=== PATIENT | male | born 1985 | race Caucasian/White ===

== ENCOUNTER 2022-11-28 16:22 | Emergency (ER) | payer MEDICAID ==
[2022-11-28 16:37] VITALS: BP 142/82; PULSE 71
[2022-11-28 17:36] LABS: PTT,PARTIAL THROMBOPLSTIN TIME 25.9 SEC (23.6-29.8)
[2022-11-28 17:46] LABS: ANION GAP 7.8 meq/L (7-15); CHLORIDE,CL 102 mmol/L (98-107); SODIUM,NA 140 mmol/L (136-145)
[2022-11-28 17:48] LABS: ACETAMINOPHEN < 10.0 ug/mL (10.0-30.0); ESTIMATED GFR 104 mL/min (>=60)
[2022-11-28 17:57] LABS: BARBITURATE SCREEN,URINE NEGATIVE (NEGATIVE); BENZODIAZEPINES SCREEN,URINE NEGATIVE (NEGATIVE); EDDP,URINE SCREEN NEGATIVE (NEGATIVE); TCA SCREEN,URINE NEGATIVE (NEGATIVE); THC SCREEN,URINE 50 NG/ML POSITIVE (NEGATIVE)
[2022-11-28 17:58] LABS: BUPRENORPHINE SCREEN,URINE NEGATIVE (NEGATIVE)
== END 2022-11-28 19:00 | disposition home or self-care (01) ==
LOC: LL.ED 16:22
DX: F32.A Depression, unspecified (principal); R41.3 Other amnesia; R45.851 Suicidal ideations; Z88.0 Allergy status to penicillin
CPT/HCPCS: 36415; 70450; 80053; 80143; 80179; 80305-QW; 80307; 81001; 82140; 83735; 84100; 84443; 85025; 85610; 85730; 86140; 99284; 99285

== ENCOUNTER 2022-12-04 12:20 | Emergency (ER) | payer MEDICAID ==
[2022-12-04] MEDS ORDERED: LORazepam 2 MG/ML SDV IM ONE (12:25)
[2022-12-04 13:02] LABS: BARBITURATE SCREEN,URINE NEGATIVE (NEGATIVE); BENZODIAZEPINES SCREEN,URINE NEGATIVE (NEGATIVE); EDDP,URINE SCREEN NEGATIVE (NEGATIVE); TCA SCREEN,URINE NEGATIVE (NEGATIVE); THC SCREEN,URINE 50 NG/ML POSITIVE (NEGATIVE)
[2022-12-04 13:05] LABS: ANION GAP 4.3 meq/L (7-15); CHLORIDE,CL 105 mmol/L (98-107); SODIUM,NA 140 mmol/L (136-145)
[2022-12-04 13:06] LABS: BUPRENORPHINE SCREEN,URINE NEGATIVE (NEGATIVE)
[2022-12-04 13:09] LABS: ESTIMATED GFR 111 mL/min (>=60)
[2022-12-04 13:10] LABS: ACETAMINOPHEN < 0.0 ug/mL (10.0-30.0)
== END 2022-12-04 16:30 ==
LOC: LL.ED 12:20
DX: R45.851 Suicidal ideations (principal); Z88.0 Allergy status to penicillin
CPT/HCPCS: 36415; 80053; 80143; 80179; 80305-QW; 80307; 81003; 83735; 85025; 86140; 96372; 99284; 99285; J2060

== ENCOUNTER 2023-10-06 18:55 | Emergency (ER) | payer SELFPAY ==
[2023-10-06 20:01] LABS: BASOPHILS ABSOLUTE AUTO 0.02 K/uL (0.00-0.20); BASOPHILS PERCENT AUTO 0.2 % (0.0-2.0); EOSINOPHILS ABSOLUTE AUTO 0.06 K/uL (0.00-0.50); EOSINOPHILS PERCENT AUTO 0.5 % (0.0-5.0); HEMATOCRIT 38.2 % (39.0-49.0); HEMOGLOBIN 12.6 g/dL (13.1-16.8); LYMPHOCYTES PERCENT AUTO 15.6 % (10.0-50.0); MEAN CORPUSCULAR HEMOGLOBIN 29.2 pg (28.2-33.3); MEAN CORPUSCULAR VOLUME 88.4 fL (84.0-98.0); MONOCYTES ABSOLUTE AUTO 0.72 K/uL (0.00-1.00); MONOCYTES PERCENT AUTO 6.6 % (2.0-14.0); NEUTROPHILS ABSOLUTE AUTO 8.43 K/uL (1.40-7.00); NEUTROPHILS PERCENT AUTO 77.1 % (45.0-80.0); PLATELET COUNT,PLT 376 K/uL (150-350); RED BLOOD CELL COUNT 4.32 M/uL (4.33-5.41); RED CELL DISTRIBUTION WIDTH 13.3 % (11.2-14.1); WHITE BLOOD CELL COUNT,WBC 10.9 K/uL (4.0-10.2)
[2023-10-06 20:14] LABS: CORONAVIRUS COVID-19 NAA NEGATIVE (NEGATIVE); INFLUENZA A NAA NEGATIVE (NEGATIVE); INFLUENZA B NAA NEGATIVE (NEGATIVE); RESPIRATORY SYNCYTIAL VIR NAA NEGATIVE (NEGATIVE)
[2023-10-06 20:15] LABS: INR 1.1 (0.9-1.1); PROTHROMBIN TIME 10.7 SEC (9.0-11.1)
[2023-10-06 20:21] LABS: ALBUMIN 3.5 g/dL (3.4-5.0); ANION GAP 7.4 meq/L (7-15); BILIRUBIN TOTAL 0.5 mg/dL (0.2-1.0); CALCIUM 8.9 mg/dL (8.5-10.1); CARBON DIOXIDE,CO2 30.6 mmol/L (21.0-32.0); CREATININE 0.95 mg/dL (0.51-1.17); EST CRCL DRUG DOSING (CG) 103.36 mL/min; POTASSIUM,K 4.1 mmol/L (3.5-5.1); PROTEIN TOTAL,TP 6.8 g/dL (6.4-8.2)
[2023-10-06] MEDS ORDERED: Sodium Chloride 0.9% 10 ML Syringe FLUSH PRN (20:37)
[2023-10-06] MEDS: Iopamidol 612 MG/ML 100 ML Bottle IVPUSH ONE (20:40)
[2023-10-06 21:20] VITALS: BP 113/66; PULSE 70
[2023-10-06] MEDS: Azithromycin 250 MG Tab PO ONE (22:10)
== END 2023-10-06 22:15 | disposition home or self-care (01) ==
LOC: LL.ED 18:55
DX: J18.9 Pneumonia, unspecified organism (principal); Z88.0 Allergy status to penicillin; Z20.822 Contact with and (suspected) exposure to COVID-19
CPT/HCPCS: 0241U; 36415; 71101-LT; 71260; 80053; 85025; 85610; 93005; 99285; A9270-GY; Q9967